=== PATIENT | female | born 1950 | race Caucasian/White ===

== ENCOUNTER → 2020-01-19 | Outpatient (CLI) | payer OTHER | LOC: SJCVC 13:32 | DX: R94.31 Abnormal electrocardiogram [ECG] [EKG] (principal); I47.1 Supraventricular tachycardia; J44.9 Chronic obstructive pulmonary disease, unspecified; E78.5 Hyperlipidemia, unspecified; F17.200 Nicotine dependence, unspecified, uncomplicated; Z79.899 Other long term (current) drug therapy ==

== ENCOUNTER → 2020-01-29 | Outpatient (CLI) | payer OTHER ==
[~2020-01-29] MED LIST: ADVIL200 M1 PO; LIPITOR 20 MG T20 M1 PO; NEURONTIN 300M300 M2 PO; NICOTINE GUM2 MG; PROVENTIL HFA6.7 G1 INH; SPIRIVA INH; ZANAFLEX4 M1 PO; ZOLOFT100 MG PO
== END ==
LOC: LAB 01-27 09:17
PROVIDERS: ATTEND Internal Medicine Cardiovascular Disease
DX: Z01.812 Encounter for preprocedural laboratory examination (principal); Z11.59 Encounter for screening for other viral diseases

== ENCOUNTER 2020-02-03 06:45 | Observation (INO) | payer OTHER ==
[~2020-02-03] VITALS: Ht 162.6 cm; Wt 56.2 kg
[2020-02-03] VITALS (14 sets, daily range): BP systolic 112–152; BP diastolic 59–133
[2020-02-03] MEDS ORDERED: PROVENTIL HFA6.7 G1 INH (07:27)
[2020-02-03] MEDS ORDERED: NEURONTIN 300M300 M2 PO (07:28)
[2020-02-03] MEDS ORDERED: LIPITOR 20 MG T20 M1 PO (07:28)
[2020-02-03] MEDS ORDERED: ADVIL200 M1 PO (07:29)
[2020-02-03] MEDS ORDERED: SPIRIVA INH (07:30)
[2020-02-03] MEDS ORDERED: ZOLOFT100 MG PO (07:30)
[2020-02-03] MEDS ORDERED: ZANAFLEX4 M1 PO (07:31)
[2020-02-03 07:32] LABS: ABSOLUTE NEUTROPHILS 3.7 thou/uL (1.4-8.2); BASOPHILS 0.5 % (0.0-2.0); EOSINOPHILS 4.2 % (0.0-3.0); HEMATOCRIT 34.1 % (37.0-47.0); HEMOGLOBIN 11.8 gm/dL (12.0-15.0); LYMPHOCYTES 25.1 % (24.0-44.0); MCH 33.6 pg (26.0-34.0); MCHC 34.5 g/dL (28.0-37.0); MCV 97.3 fL (80.0-100.0); MONOCYTES 7.7 % (1.0-8.0); PLATELET COUNT 177 thou/uL (150-400); POLYS 62.5 % (36.0-66.0); RDW 13.2 % (10.5-14.5); WBC 5.9 thou/uL (4.0-11.0)
[2020-02-03 07:52] LABS: CALCIUM 8.9 mg/dL (8.5-10.1); CREATININE 0.8 mg/dL (0.6-1.0); POTASSIUM 4.2 mmol/L (3.5-5.1)
[2020-02-03 07:57] LABS: ALBUMIN 3.8 g/dL (3.4-5.0); TOTAL BILIRUBIN 0.2 mg/dL (0.2-1.0); TOTAL PROTEIN 7.1 g/dL (6.4-8.2)
[2020-02-03 08:04] LABS: APTT 24.1 Seconds (24.5-32.8); PROTIME 9.9 Seconds (9.3-11.4)
[2020-02-03] MEDS ORDERED: NICOTINE GUM2 MG (14:09)
--- NOTE | 2020-02-03 19:37 | NUR ---
NEW ADMISSION FOR CARDIAC ABLASION WITH DR DING. ALERT X4 FROM HOME ALONE. DENIES SOB, DENIES CHEST PAIN, VSS, UP AB ANGY TO BATHROOM. NSR ON TELE.RIGHT AND LEFT GROIN SIGHTS C/D/I AND COMPLIANT LEG IMMOBILIZED PER 3 HOURS ORDERS. PLANS TO DC HOME TOMORROW. CALL LIGHT IN REACH.
[2020-02-04 04:36] VITALS: BP 106/63
--- NOTE | 2020-02-04 05:35 | NUR ---
ASSUMED PT CARE AT 1900. PT IS ALERT AND ORIENTED. NO SIGN OF DISTRESS NOTED IN PT. PT IS AMBULATORY. SVT ABLATION DONE. BILATERAL GROIN SITE CLEAN DRY AND INTACT. PT VERBALIZES BACK PAIN. PAIN MED ADMINISTERED TO PATIENT. TOLERATED PO INTAKE. POSSIBLE DISCHARGE TODAY. NURSING POC, CONTINUE TO MONITOR.
[2020-02-04 07:15] VITALS: BP 112/61
[2020-02-04 07:45] VITALS: BP 112/61
--- NOTE | 2020-02-04 08:35 | P ---
[facility] [place] [address] PROCEDURE REPORT Name: OMAR DOWNS Room #: 207-[facility] M..#: [id number] Admission: 02/03/20 Attend Phys: Bryan Hardin MD Discharge: Date of : 48 Report #: [id number] THIS REPORT FOR: cc: Tomi Acuna,Tomi Michelle,Bryan Varela MD ~ CC: Tomi Hardin DATE OF SERVICE: 02/03/2020 SVT ABLATION PREOPERATIVE DIAGNOSIS: Supraventricular tachycardia. POSTOPERATIVE DIAGNOSIS: Typical atrioventricular shaka reentrant tachycardia. PROCEDURES PERFORMED: 1. SVT ablation, CPT code 69642. 2. EP with left atrial pacing and recording, CPT code 70551. 3. Program stimulation pacing after IV drug infusion, CPT code 37715. 4. 3D mapping, CPT code 47439. HISTORY OF PRESENT ILLNESS: The patient is a 69-year-old female with recurrent SVT despite medication therapy here for EP study and possible ablation. ANESTHESIA: The patient underwent MAC anesthesia with no anesthesia related complications. DESCRIPTION OF PROCEDURE: The patient underwent informed consent. We discussed the details of the procedure including the risks, which include but not limited to bleeding, vascular damage, stroke, OR as well as damage to the [place] conduction system. She understood these risks and is willing to proceed. The patient was brought to EP laboratory in fasting and sedated state and prepped and draped in a sterile fashion. I obtained access to the bilateral femoral veins placing an 8 and 6-[place] short sheath in the right femoral vein and 6 and 7-[place] short sheath in the left femoral vein. I had difficulties advancing my CS catheter via the right femoral vein site, obtained another 6-[place] short sheath in the left femoral vein to advance the His catheter. Next, under fluoroscopy, 3 quadripolar catheters and a decapolar catheter placed at the HRA, His, RV position and decapolar catheter was placed easily in the coronary sinus. A basic EP study was then performed. At baseline, the patient was in sinus rhythm with a sinus cycle length of 855 milliseconds, NJ interval 175 milliseconds, QRS duration 85 milliseconds, QT interval 410 milliseconds, AH interval 85 milliseconds, HV interval 37 milliseconds. Ventricular pacing was [facility] [address] [place] [address] PROCEDURE REPORT Name: OMAR DOWNS Room #: 207-[facility] Hermelinda Taylor#: [id number] Admission: 02/03/20 Attend Phys: Bryan Hardin MD Discharge: Date of : 48 Report #: [id number] performed and VA block was noted at 480 milliseconds. VA conduction was both midline and decremental. A single ventricular extrastimuli were delivered and VA ERP was greater than 400 milliseconds at [address] cycle length. Atrial burst pacing was performed and AV block was noted at 350 milliseconds. It appeared the patient had a long AH interval suggestive of a slow pathway. Atrial ERP was noted at 220 milliseconds at a [address] cycle length. No SVT could be induced. Next, isoproterenol infusion was started at 2 mcg per minute. Atrial burst pacing was performed and AV block was noted at 270 milliseconds. Atrial ERP was noted at 280 milliseconds at a [address] cycle length. Then, ventricular burst pacing was performed and SVT was induced. SVT demonstrated tachycardia cycle length of 320 milliseconds, septal VA time of 35 milliseconds and there was a VAHV response. Once in the tachycardia was actually hard to terminate with ventricular pacing, but I could terminate with atrial burst pacing. I attempted to re-induce the arrhythmia pacing the A and and this was not possible, but it was very easily inducible with ventricular burst pacing. I demonstrated VAHV response multiple times. As such, a diagnosis of typical AV shaka reentrant tachycardia was made. 3D MAPPING AND ABLATION: Next, I placed an SR0 sheath and a 4-mm [employer] [place] ablation catheter at the level of the His bundle. 3D geometry of the right atrium was created with specific emphasis of the His bundle and slow pathway region. Ablation was performed at 50 [place] and 55 degrees along the slow pathway region. A total of 6 ablation lesions were performed, all with good junctionals and no evidence of AV block. Post-ablation testing. Next, repeat EP study was performed post-ablation, isoproterenol was turned back on and atrial burst pacing was again performed. AV block was noted at 280 milliseconds. Ventricular burst pacing showed VA block at 290 milliseconds. Ventricular ERP was noted at 200 milliseconds at [address] cycle length. Aggressive atrial and ventricular pacing was performed and we could no longer induce AVNRT. Also with atrial burst pacing, no longer. The patient had a slow pathway as there was no longer a long AH interval. Isoproterenol was turned off and I continued testing and SVT was non-inducible. Post-ablation, the patient was in sinus rhythm, sinus cycle length of 560 milliseconds, NJ interval 165 milliseconds, QRS duration 80 milliseconds, QT interval 320 milliseconds. As such, catheters and sheaths were pulled. Hemostasis was obtained and the patient awoke neurologically and hemodynamically intact. CONCLUSIONS: 1. Successful ablation of typical AV shaka reentrant tachycardia. 2. Normal SA shaka function. 3. Normal AV shaka function. [facility] [address] [place] [address] PROCEDURE REPORT Name: OMAR DOWNS Room #: 207-[facility] M.R.#: [id number] Admission: 02/03/20 Attend Phys: Bryan Hardin MD Discharge: Date of : 48 Report #: [id number] 4. Normal His-Purkinje function. 5. No other inducible arrhythmias on or off isoproterenol. <ELECTRONICALLY SIGNED> By: Bryan Hardin MD 02/04/20 0835 [id number] 1221 Bryan Hardin MD /nt
[2020-02-04 09:19] VITALS: BP 112/61
--- NOTE | 2020-02-04 10:27 | NUR ---
PT CARE ASSUMED AT 0700. AO X 4. ASSESSMENT CHARTED. MEDICATION CHARTED. PT DISCHARGED TO HOME. SALDANA SHEET SIGNED. TELEMETRY D/C'D. IV D/C'D.
== END 2020-02-04 09:53 | disposition home or self-care (01) ==
LOC: CATH 06:45 → 2N 12:00 → CATH 14:35 → 2N 02-04 09:53
PROVIDERS: ADMIT Internal Medicine Cardiovascular Disease; ATTEND Internal Medicine Cardiovascular Disease
DX: I47.1 Supraventricular tachycardia (principal); J44.9 Chronic obstructive pulmonary disease, unspecified; E78.5 Hyperlipidemia, unspecified; Z79.899 Other long term (current) drug therapy
CPT/HCPCS: 62110; 62900; 70005